=== PATIENT | female | born 1945 | race Caucasian/White ===

== ENCOUNTER 2020-10-11 12:38 | Outpatient (NON) | payer MEDICARE, SELFPAY ==
[2020-10-11 12:56] LABS: Hematocrit 33.1 % (35.0-42.0); Hemoglobin 10.1 g/dL (11.7-13.8); Mean Corpuscular HGB Conc 30.5 g/dL (32.0-36.0); Mean Corpuscular Hemoglobin 29.5 pg (27.0-31.0); Mean Corpuscular Volume 96.8 fL (78.0-102.0); Mean Platelet Volume 8.9 fl (9.2-11.8); Platelet Count Result 467 K/mm3 (150-420); Red Blood Count 3.42 M/mm3 (4.20-5.40); Red Cell Distribution Width 15.4 % (11.6-14.4); White Blood Count 12.6 K/mm3 (4.8-10.8)
[2020-10-11 13:18] LABS: Alanine Aminotransferase 62 U/L (14-59); Albumin Level 3.3 g/dL (3.4-5.0); Alkaline Phosphatase 247 U/L (46-116); Anion Gap 11 mmol/L (8-16); Aspartate Amino Transferase 30 U/L (15-37); Bilirubin,Total 0.3 mg/dL (0.00-1.00); Blood Urea Nitrogen 15 mg/dL (7-18); Calcium 8.9 mg/dL (8.5-10.1); Carbon Dioxide 26 mmol/L (21-32); Chloride 103 mmol/L (98-108); Estimated Glomerular Filt Rate > 60; Glucose 124 mg/dL (70-99); Osmolality Calculated 291 mOsm/kg (285-295); Potassium 3.9 mmol/L (3.5-5.1); Sodium 140 mmol/L (136-145); Total Protein 6.3 g/dL (6.4-8.2)
== END 2020-10-11 12:39 | disposition home or self-care (01) ==
LOC: CHSLAB 12:43
PROVIDERS: Visit Provider Thoracic Surgery (Cardiothoracic Vascular Surgery)
DX: I45.9 Conduction disorder, unspecified (principal)
CPT/HCPCS: 36415; 80053; 85027